=== PATIENT | female | born 1975 | race Caucasian/White ===

== ENCOUNTER 2019-02-27 21:21 | Emergency (ER) | payer MEDICARE ==
[~2019-02-27] VITALS: Ht 170.2 cm; Wt 104.3 kg
[2019-02-27] MEDS ORDERED: PROAIR HFA8.5 GM INH (21:39)
[2019-02-27] MEDS ORDERED: Clindamycin 900mg 50 ML IVPB ONE (21:45)
--- NOTE | 2019-02-27 21:48 | Emergency Room Report ---
History of Present Illness General Chief Complaint: Edema Source: Patient Present Illness HPI Is a 43-year-old female with a history of asthma and lymphedema. She presents with chief complaint of swelling and redness to her lower extremity. Right leg is also draining. His been ongoing for a couple months but worse in the last week. She is visiting her mom from [place]. She has not seen a doctor for this for many months. Patient denies any fever chills. Does have pain to the lower extremity. No nausea no vomiting. No fever or chills. Denies any other complaint. Allergies: Coded Allergies: PENICILLINS (Verified Allergy, Unknown, 02/27/19) Patient History Past Medical History: see triage record, old chart reviewed, asthma Past Surgical History: none Pertinent Family History: none Social History: Reports: smoking Now: No Immunizations: other Reviewed Nursing Documentation: PMH: Agreed; PSxH: Agreed Nursing Documentation-PMH Past Medical History: No History, Except For Hx Asthma: Yes Review of Systems Eye: Denies: eye pain, blurred vision ENT: Denies: ear pain, nose congestion, throat swelling Respiratory: Denies: cough, shortness of breath Cardiovascular: Denies: chest pain, palpitations Gastrointestinal: Denies: abdominal pain, diarrhea, nausea, vomiting Musculoskeletal: Reports: muscle pain, muscle stiffness; Denies: back pain, joint pain Skin: Denies: rash Neurological: Denies: headache, numbness Endocrine: Denies: increased thirst, increased urine Hematologic/Lymphatic: Denies: easy bruising All Other Systems: negative except mentioned in HPI Physical Exam Vital Signs Date Time Temp Pulse Resp B/P (MAP) Pulse Ox O2 Delivery O2 Flow Rate FiO2 02/27/19 21:35 98.2 110 14 96 Room Air vitals with tachycardia Sp02 EP Interpretation: reviewed, normal General Appearance: well appearing, no apparent distress, alert, obese Head: normocephalic, atraumatic Eyes: bilateral eye PERRL, bilateral eye EOMI ENT: hearing grossly normal, normal pharynx Neck: full range of motion, supple, no meningismus Respiratory: chest non-tender, lungs clear, normal breath sounds Cardiovascular #1: regular rate, rhythm, no murmur Gastrointestinal: normal bowel sounds, non tender, no mass, no organomegaly, no bruit, non-distended Musculoskeletal: back normal, gait/station normal, normal range of motion, other - Bilateral lower extremities with chronic lymphedema. There is erythema from the foot up to the knee areas. Right lower extremity with Serrous oozing. Neurologic: alert, oriented x3 Psychiatric: mood/affect normal Skin: warm/dry Medical Decision Making Diagnostic Impression: Primary Impression: Cellulitis of lower extremity Qualified Codes: L03.119 - Cellulitis of unspecified part of limb Additional Impression: Lymphedema of both lower extremities ER Course Patient with lymphedema and cellulitis. Wound cultures sent. No evidence of any sepsis or necrotizing fasciitis or DVT. We'll discharge home. Last Vital Signs Date Time Temp Pulse Resp B/P (MAP) Pulse Ox O2 Delivery O2 Flow Rate FiO2 02/27/19 21:35 98.2 110 14 96 Room Air Status: improved Disposition: HOME, SELF-CARE Condition: Stable Scripts Ibuprofen* (MOTRIN*) 600 Mg Tablet 600 MG ORAL THREE TIMES A DAY, #30 TAB 0 Refills Prov: Fly Luis MD 02/27/19 Hydrocodone/Acetaminophen 5-325* (HYDROCODONE/ACETAMINOPHEN 5-325*) 1 Each Tablet 1 TAB ORAL Q6H PRN for For Pain, #15 TAB 0 Refills Prov: Fly Luis MD 02/27/19 Clindamycin Hcl (CLINDAMYCIN HCL) 300 Mg Capsule 300 MG ORAL THREE TIMES A DAY, #21 CAP Prov: Fly Luis MD 02/27/19 Additional Instructions: Keep wound clean. Follow-up with your doctor in 7 days. Return if worse. Fly Luis MD February 27, 2019 21:48
--- NOTE | 2019-02-27 21:50 | NUR ---
ED Nurse Note: pt walked in c/o pain on both legs, pt states she had bug bite which progressively worsen and now has pain, noted BLE with oozing pus and redness and foul odor with marked swelling and tenderness. cms intact. will cont monitor.
--- NOTE | 2019-02-27 22:10 | NUR ---
ED Nurse Note: wound care and dressing applied by technical support 1 software engineer.
[2019-02-27 22:11] LABS: ANION GAP 5 mmol/L (5-15); BLOOD UREA NITROGEN 20 mg/dL (7-18); CALCIUM 8.8 MG/DL (8.5-10.1); CARBON DIOXIDE 29 MMOL/L (21-32); CHLORIDE 101 MMOL/L (98-107); CREATININE 1.4 MG/DL (0.55-1.30); POTASSIUM 4.3 MMOL/L (3.5-5.1); SODIUM 135 MMOL/L (136-145)
--- NOTE | 2019-02-27 22:12 | NUR ---
ED Nurse Note: pt c/o pain on legs, ERMD notified.
[2019-02-27] MEDS ORDERED: HYDROcodone/Acetamin 5/325 tab ORAL ONE (22:15)
[2019-02-27 22:21] VITALS: BP 136/83
[2019-02-27 22:23] LABS: EOSINOPHILS % (AUTO) 5.2 % (0.0-3.0); HEMATOCRIT 35.3 % (37.0-47.0); LYMPHOCYTES % (AUTO) 29.2 % (20.0-45.0); MEAN CORPUSCULAR VOLUME 74 FL (80-99); MONOCYTES % (AUTO) 5.7 % (1.0-10.0); NEUTROPHILS % (AUTO) 58.9 % (45.0-75.0); PLATELET COUNT 449 K/UL (150-450); RED BLOOD COUNT 4.75 M/UL (4.20-5.40); RED CELL DISTRIBUTION WIDTH 16.7 % (11.6-14.8); WHITE BLOOD COUNT 7.5 K/UL (4.8-10.8)
[2019-02-27] MEDS ORDERED: IBUPROFEN600 MG ORAL (22:38)
[2019-02-27] MEDS ORDERED: HYDROCODON-ACE1 EA15 ORAL (22:38)
[2019-02-27] MEDS ORDERED: CLINDAMYCIN HC300 MG ORAL (22:38)
[2019-02-27 22:50] VITALS: BP 136/83
--- NOTE | 2019-02-27 22:50 | NUR ---
ER DISCHARGE NOTE: Patient is cleared to be discharged per ERMD, pt is aox4, on room air, with stable vital signs. ACCOMPANIED BY FAMILY MEMBER. pt was given dc and prescription instructions, pt was able to verbalize understanding, pt id band and iv site removed without complications. pt is able to ambulate with steady gait. pt took all belongings.
== END 2019-02-27 22:50 | disposition home or self-care (01) ==
LOC: EMR 21:33
DX: L03.115 Cellulitis of right lower limb (principal); I89.0 Lymphedema, not elsewhere classified; E66.9 Obesity, unspecified; Z88.0 Allergy status to penicillin; F17.200 Nicotine dependence, unspecified, uncomplicated
CPT/HCPCS: 36415; 80048; 83605; 85025; 87070; 87205; 96365; 99284; S0077

== ENCOUNTER 2019-03-01 21:29 | Emergency (ER) | payer MEDICARE ==
[~2019-03-01] VITALS: Ht 170.2 cm; Wt 112.0 kg
[~2019-03-01 21:29] MED LIST: CLINDAMYCIN HC300 MG ORAL; HYDROCODON-ACE1 EA15 ORAL; IBUPROFEN600 MG ORAL; PROAIR HFA8.5 GM INH
[2019-03-01 21:45] VITALS: BP 139/81
--- NOTE | 2019-03-01 21:45 | NUR ---
ED Nurse Note: Pt arrived ED from home for follow up, c/o both legs need to be wrapped up today. Pt is A/O X 4. both legs were redness and swollen3+ as chronic pain 04/03. Vital signs stable at this time, waiting for orders.
--- NOTE | 2019-03-01 22:08 | Emergency Room Report ---
History of Present Illness General Chief Complaint: Skin Rash/Abscess Source: Patient Present Illness HPI Patient is a 43-year-old female presented after increased drainage from both legs. Patient had been seen yesterday for drainage from her lower extremities. Patient had a history of chronic edema and asthma. She reports having continued swelling. She had prior dressing placed which she removed and subsequently presented for further evaluation. She denies any fever. She has been seen 1 day previously for similar symptoms. She had been noted to have increased drainage from 1 of the sites. She had recently been started on clindamycin. She is noted to be allergic to penicillin. She denies any fever. She denies any recent trauma.Patient was noted to have no numbness or weakness. She had been ambulatory without assistance. She had prior history of asthma. Allergies: Coded Allergies: PENICILLINS (Verified Allergy, Unknown, 02/27/19) Patient History Last Menstrual Period: n/a Reviewed Nursing Documentation: PMH: Agreed; PSxH: Agreed Nursing Documentation-PMH Past Medical History: No History, Except For Hx Asthma: Yes Review of Systems All Other Systems: negative except mentioned in HPI Physical Exam Vital Signs Date Time Temp Pulse Resp B/P (MAP) Pulse Ox O2 Delivery O2 Flow Rate FiO2 03/01/19 21:39 98.1 120 18 95 Room Air General Appearance: well appearing, no apparent distress, alert, GCS 15, obese Head: normocephalic, atraumatic ENT: hearing grossly normal, normal voice Neck: full range of motion, supple Respiratory: speaking full sentences, wheezing, expiration Cardiovascular #1: edema - bilateral lymph edema and dermatitis Gastrointestinal: normal inspection, normal bowel sounds, non tender, soft Musculoskeletal: no calf tenderness Neurologic: normal inspection, alert, oriented x3, responsive, normal gait Psychiatric: mood/affect normal Skin: other - bilateral lower extremity excoriations and edema, slight serous drainage Medical Decision Making Diagnostic Impression: Primary Impression: Chronic edema ER Course Patient presented for wound check for chronic edema. Differential diagnosis include was not limited to cellulitis, abscess, necrotizing fasciitis among others. Patient has a benign exam and does not appear to require any further imaging or laboratory testing at this time patient was noted to have some prior history of asthma and was given a breathing treatment for slight wheezing. She was noted to have improvement in wheezing after treatment. Patient was given medications to reduce edema. She was noted to be on antibiotics. Patient is not noted to be febrile and does not appear to have any increase in location of swelling. Patient's legs are wrapped with sterile dressings. She was advised to follow-up with her primary care physician for recheck in the next few days. At the time of discharge patient was ambulatory without assistance. She was advised to keep her legs elevated to reduce edema. Last Vital Signs Date Time Temp Pulse Resp B/P (MAP) Pulse Ox O2 Delivery O2 Flow Rate FiO2 03/01/19 21:39 98.1 120 18 95 Room Air Status: improved Disposition: HOME, SELF-CARE Condition: Stable Scripts Hydrochlorothiazide* (HYDROCHLOROTHIAZIDE*) 25 Mg Tablet 25 MG ORAL DAILY, #15 TAB Prov: Ovidio Alexandre MD 03/01/19 Ovidio Alexandre MD March 01, 2019 22:08
[2019-03-01] MEDS ORDERED: Albuterol/Ipratropium 3ml neb HHN ONE (22:30)
[2019-03-01] MEDS ORDERED: HYDROCHLOROTHIA25 MG ORAL (22:53)
--- NOTE | 2019-03-01 23:03 | NUR ---
ED Nurse Note: Meds given as ordered.
[2019-03-01 23:07] VITALS: BP 139/81
--- NOTE | 2019-03-01 23:07 | NUR ---
D/cER DISCHARGE NOTE: Patient is cleared to be discharged per Dr. Alexandre. Dressing applied to both legs and Meds given as ordered. Pt is aox4, on room air with stable vital signs. Pt was given dc and prescription instructions, pt was able to verbalize understanding. Pt ID band removed. pt is able to ambulate with steady gait and took all belongings.
== END 2019-03-01 23:07 | disposition home or self-care (01) ==
LOC: EMR 21:58
DX: R60.9 Edema, unspecified (principal); Z88.0 Allergy status to penicillin; E66.9 Obesity, unspecified
CPT/HCPCS: 94640; 94664; 99284; J7620